=== PATIENT | male | born 1975 | race Caucasian/White ===

== ENCOUNTER 2020-02-11 14:24 | Emergency (ER) | payer OTHER ==
[~2020-02-11] VITALS: Ht 180.3 cm; Wt 102.1 kg
[2020-02-11 14:28] VITALS: BP 123/74
--- NOTE | 2020-02-11 14:28 | NUR ---
[place] [facility] in [facility] - 02/11/20 at 1504 by [facility] PATIENT BIBA BLS TO [facility] 06
[2020-02-11 14:42] VITALS: BP 135/82
--- NOTE | 2020-02-11 15:35 | NUR ---
44 YO MALE C/O RIGHT UPPER LEG PAIN X6 DAYS; STATES HE WAS HIT WITH A FORK LIFT AT WORK TO RIGHT UPPER THIGH, PURPLE DISCOLORATION NOTED TO RIGHT UPPER THIGH
--- NOTE | 2020-02-11 16:12 | NUR ---
Patient discharged with v/s stable. Written and verbal after care instructions given and explained. Patient alert, oriented and verbalized understanding of instructions. Ambulatory with steady gait. All questions addressed prior to discharge. ID band removed. Patient advised to follow up with PMD. Rx of ROBAXIN, NAPROSYN AND VOLTAREN given. Patient educated on indication of medication including possible reaction and side effects. Opportunity to ask questions provided and answered.
== END 2020-02-11 16:12 | disposition home or self-care (01) ==
LOC: MED 14:24
DX: M79.651 Pain in right thigh (principal)
CPT/HCPCS: 73552; 99283; Q0092